=== PATIENT | male | born 1950 | race Caucasian/White ===

== ENCOUNTER 2024-01-08 19:45 | Emergency (ER) | payer MEDICARE ==
[~2024-01-08] VITALS: Ht 180.3 cm; Wt 83.9 kg
[2024-01-08 20:58] VITALS: BP 164/66; PULSE 88; RESP 20; TEMP 98.6; O2SAT 100
[2024-01-08] MEDS: ketOROlac 30MG VIAL (30MG/ML) IM ONE (21:32)
== END 2024-01-08 21:33 | disposition home or self-care (01) ==
LOC: EDH 19:45
DX: S76.312A Strain of muscle, fascia and tendon of the posterior muscle group at thigh level, left thigh, initial encounter (principal); I48.91 Unspecified atrial fibrillation; E78.00 Pure hypercholesterolemia, unspecified; I10 Essential (primary) hypertension; R10.2 Pelvic and perineal pain; Z98.890 Other specified postprocedural states; Z90.49 Acquired absence of other specified parts of digestive tract; Z88.1 Allergy status to other antibiotic agents; Z96.641 Presence of right artificial hip joint; W01.0XXA Fall on same level from slipping, tripping and stumbling without subsequent striking against object, initial encounter; Y93.89 Activity, other specified; Y92.89 Other specified places as the place of occurrence of the external cause; Y99.8 Other external cause status
CPT/HCPCS: 99284; 73502; 96372; 72170; J1885